=== PATIENT | male | born 1995 | race African-American/Black ===

== ENCOUNTER 2020-06-01 17:45 | Emergency (ER) | payer SELFPAY ==
[~2020-06-01] VITALS: Ht 185.4 cm; Wt 106.6 kg
[2020-06-01] MEDS ORDERED: Amoxicillin500 MG PO (18:11)
== END 2020-06-01 18:25 | disposition home or self-care (01) ==
LOC: ER 17:45
DX: K04.7 Periapical abscess without sinus (principal)
CPT/HCPCS: 99282; A9270